=== PATIENT | female | born 1960 | race Caucasian/White ===

== ENCOUNTER 2017-10-27 08:14 | Emergency (ER) | payer MEDICAID ==
[~2017-10-27] VITALS: Ht 172.7 cm; Wt 114.0 kg
[2017-10-27] MEDS ORDERED: LORAZEPAM 1MG TABLET PO ONE (09:00)
[2017-10-27] MEDS ORDERED: CYANOCOBALAMIN 1000MCG/ML VIAL IM ONE (09:00)
[2017-10-27 09:33] LABS: CHLORIDE 94 mEq/L (98-107); INR 1.1; PROTHROMBIN TIME 11.7 sec (9.4-11.6)
[2017-10-27 09:36] LABS: ETHANOL BLOOD < 10 mg/dL
[2017-10-27 10:26] LABS: HEMATOCRIT. 38.1 % (36.0-48.0); MEAN CORPUSCULAR HEMOGLOBIN 35.2 pg (28.0-32.0); MEAN CORPUSCULAR VOLUME 105.2 fL (81.0-99.0); PLATELET 305 x1000/uL (130-400); RED BLOOD CELL COUNT 3.62 mill/uL (4.2-5.4); RED CELL DISTRIBUTION WIDTH 16.1 % (11.6-14.6)
[2017-10-27 10:33] LABS: HEMOGLOBIN. 12.7 g/dL (12.0-16.0)
[2017-10-27 10:47] LABS: HEPATITIS B SURFACE ANTIGEN NEGATIVE
[2017-10-27 11:14] LABS: HEPATITIS B CORE AB IGM NEGATIVE
[2017-10-27] MEDS ORDERED: BISACODYL 5MG TABLET PO ONE (11:15)
[2017-10-27 11:16] LABS: HEPATITIS A AB IGM NEGATIVE (NEGATIVE)
[2017-10-27 11:23] VITALS: BP 146/63
[2017-10-27 11:35] LABS: NUCLEATED RED BLOOD CELLS 1 /100 WBC; PLATELET ESTIMATE NORMAL
== END 2017-10-27 11:31 | disposition home or self-care (01) ==
LOC: ER 09:41
DX: F32.9 Major depressive disorder, single episode, unspecified (principal); K59.00 Constipation, unspecified; F10.20 Alcohol dependence, uncomplicated; E86.0 Dehydration; R60.9 Edema, unspecified; R16.2 Hepatomegaly with splenomegaly, not elsewhere classified; D53.9 Nutritional anemia, unspecified; R74.0 Nonspecific elevation of levels of transaminase and lactic acid dehydrogenase [LDH]; R77.9 Abnormality of plasma protein, unspecified; E80.7 Disorder of bilirubin metabolism, unspecified; I11.0 Hypertensive heart disease with heart failure; I50.9 Heart failure, unspecified; K70.10 Alcoholic hepatitis without ascites; D72.810 Lymphocytopenia; D72.821 Monocytosis (symptomatic); E87.8 Other disorders of electrolyte and fluid balance, not elsewhere classified; E66.01 Morbid (severe) obesity due to excess calories; F41.9 Anxiety disorder, unspecified
CPT/HCPCS: 36415; 71045; 80053; 83036; 83735; 83880; 84484; 85025; 85610; 87040; 93005; 96372; 99285; G0482; J3420; 86705; 86709; 86803; 87340

== ENCOUNTER 2018-04-26 10:00 | Inpatient (IN) | payer MEDICAID ==
[~2018-04-26] VITALS: Ht 175.3 cm; Wt 109.1 kg
[~2018-04-26 10:00] MED LIST: ASPI-1159 PO; CHLO25CA10 PO; FOLI-43 PO; MAGN400T27 PO; METO25TA6 PO; MULT1TAB66 PO; OMEP20TA2 PO; RIVA20TA PO; SERT50TA12 PO; THIA100T72 PO
[2018-04-26] MEDS ORDERED: ONDANSETRON HCL 4MG/2ML INJ IV STA (10:18)
[2018-04-26] MEDS ORDERED: ACETAMINOPHEN 325MG TABLET PO STA (10:18)
[2018-04-26] MEDS ORDERED: LORAZEPAM 2MG/ML CPJ IV ONE ×2 (10:30→10:45)
[2018-04-26] MEDS ORDERED: SODIUM CHLORIDE 0.9% 1000ML BAG (SEPSIS BOLUS) IV ONE (10:30)
[2018-04-26 11:01] LABS: BG BASE EXCESS -1.2 mmol/L (-2.0-2.0); BG CARBOXYHEMOGLOBIN 1.4 % (0.5-1.5); BG DEOXYHEMOGLOBIN 2.9 % (0.0-5.0); BG FRACTION INSPIRED OXYGEN 21; BG HCO3 ACT 19.9 mmol/L (22.0-26.0); BG METHEMOGLOBIN 0.3 % (0.0-1.5); BG OXYHEMOGLOBIN 95.4 % (94.0-97.0); BG PCO2 24.4 mmHg (35.0-45.0); BG PH 7.529 (7.350-7.450); BG PO2 82.7 mmHg (75.0-100.0); BG SAMPLE SITE RIGHT BRACHIAL; BG TOTAL HEMOGLOBIN 13.5 g/dL (12.0-18.0); BG VENT MODE ROOM AIR
[2018-04-26 11:10] LABS: CHLORIDE 90 mEq/L (98-107)
[2018-04-26 11:14] LABS: ETHANOL BLOOD < 10 mg/dL
[2018-04-26] MEDS ORDERED: METOPROLOL TARTRATE 5MG/5ML VIAL IV ONE ×2 (11:15→12:00)
[2018-04-26 11:45] LABS: HEMATOCRIT. 37.2 % (36.0-48.0); HEMOGLOBIN. 12.4 g/dL (12.0-16.0); MEAN CORPUSCULAR HEMOGLOBIN 33.5 pg (28.0-32.0); MEAN CORPUSCULAR VOLUME 100.4 fL (81.0-99.0); MEAN PLATELET VOLUME 8.3 fl (7.4-10.4); PLATELET 242 x1000/uL (130-400); RED BLOOD CELL COUNT 3.71 mill/uL (4.2-5.4); RED CELL DISTRIBUTION WIDTH 17.9 % (11.6-14.6)
[2018-04-26] MEDS ORDERED: LEVOFLOXACIN 500MG PREMIX 100 ML IV ONE (12:30)
[2018-04-26 12:58] LABS: INR 1.1; PARTIAL THROMBOPLASTIN TIME 29.9 sec (23.4-31.0); PROTHROMBIN TIME 10.8 sec (9.1-11.1)
[2018-04-26] MEDS ORDERED: METOPROLOL TARTRATE 25MG TABLET PO ONE (13:00)
[2018-04-26 13:29] LABS: CLARITY URINE CLOUDY (CLEAR); COLOR URINE YELLOW (YELLOW); KETONES URINE 4+ (NEGATIVE); LEUKOCYTE ESTERASE URINE TRACE (NEGATIVE); NITRITE URINE NEGATIVE (NEGATIVE); OCCULT BLOOD URINE NEGATIVE (NEGATIVE); PH URINE 5.5 (4.5-8.0); PROTEIN URINE TRACE (NEGATIVE); SPECIFIC GRAVITY URINE 1.021 (1.005-1.030)
[2018-04-26 13:35] LABS: PLATELET ESTIMATE NORMAL
[2018-04-26 13:42] LABS: *AMPHETAMINES SCREEN URINE NEGATIVE (NEGATIVE); *BARBITURATES SCREEN URINE NEGATIVE (NEGATIVE); *BENZODIAZEPINES SCREEN URINE PRESUMTIVE POSITIVE (NEGATIVE); *COCAINE SCREEN URINE NEGATIVE (NEGATIVE); METHADONE URINE SCREEN NEGATIVE (NEGATIVE)
[2018-04-26 13:43] LABS: CANNABINOID URINE SCREEN NEGATIVE (NEGATIVE); OPIATES URINE SCREEN NEGATIVE (NEGATIVE); PHENCYCLIDINE URINE SCREEN NEGATIVE (NEGATIVE)
[2018-04-26] MEDS ORDERED: CLONIDINE 0.1MG TABLET PO PRN (13:45)
[2018-04-26] MEDS ORDERED: PANTOPRAZOLE SODIUM 40 MG/VIAL IV SCH ×2 (15:45→19:00)
[2018-04-26 22:00] VITALS: BP 136/67
[2018-04-26] MEDS: RISPERIDONE 0.5MG TABLET PO SCH (22:40)
[2018-04-26] MEDS: METOPROLOL TARTRATE 50MG TABLET PO SCH (22:40)
[2018-04-26] MEDS: CHLORDIAZEPOXIDE 5 MG CAPSULE PO SCH (22:41)
[2018-04-26] MEDS: ENOXAPARIN 100MG/ML SYR SUBCUT SCH (22:42)
[2018-04-26] MEDS: LORAZEPAM 2MG/ML CPJ IV PRN (23:04)
[2018-04-27] VITALS (12 sets, daily range): BP systolic 86–131; BP diastolic 37–84
[2018-04-27] MEDS: CHLORDIAZEPOXIDE 5 MG CAPSULE PO SCH ×3 (06:07→21:32)
[2018-04-27 06:18] LABS: CHLORIDE 98 mEq/L (98-107)
[2018-04-27 06:30] LABS: CREATINE KINASE 156 IU/L (26-192)
[2018-04-27 06:37] LABS: CREATINE KINASE MB FRACTION 1.2 ng/mL (0.5-3.6)
[2018-04-27 07:36] LABS: BASOPHILS % 0.7 % (0.0-2.0); EOSINOPHILS % 2.2 % (0.0-5.0); HEMATOCRIT. 32.9 % (36.0-48.0); LYMPHOCYTES % 22.4 % (20.0-50.0); MEAN CORPUSCULAR HEMOGLOBIN 33.6 pg (28.0-32.0); MEAN CORPUSCULAR VOLUME 100.8 fL (81.0-99.0); MEAN PLATELET VOLUME 8.7 fl (7.4-10.4); MONOCYTES % 11.5 % (2.0-8.0); NEUTROPHILS % 63.2 % (40.0-76.0); PLATELET 163 x1000/uL (130-400); RED BLOOD CELL COUNT 3.26 mill/uL (4.2-5.4); RED CELL DISTRIBUTION WIDTH 17.4 % (11.6-14.6)
[2018-04-27] MEDS ORDERED: INFLUENZA VIRUS VACCINE(AFLURIA) 0.5ML SYR IM ONE (08:00)
[2018-04-27] MEDS: PANTOPRAZOLE SODIUM 40 MG/VIAL IV SCH (08:59)
[2018-04-27] MEDS: MULTIVITAMINS,THER W-MINERALS TABLET PO SCH (08:59)
[2018-04-27] MEDS: THIAMINE HCL 100MG TABLET PO SCH (08:59)
[2018-04-27] MEDS: FOLIC ACID 1MG TABLET PO SCH (08:59)
[2018-04-27] MEDS: AMLODIPINE 2.5MG TABLET PO SCH ×2 (09:00→21:31)
[2018-04-27] MEDS: ENOXAPARIN 100MG/ML SYR SUBCUT SCH ×2 (09:00→21:31)
[2018-04-27] MEDS: METOPROLOL TARTRATE 50MG TABLET PO SCH ×2 (09:23→21:30)
[2018-04-27] MEDS ORDERED: ONDANSETRON HCL 4MG/2ML INJ IV PRN (09:30)
[2018-04-27] MEDS ORDERED: POTASSIUM CHLORIDE 20MEQ TABLET SR PO NR (14:00)
[2018-04-27] MEDS ORDERED: MAGNESIUM 4 G PREMIX 100 ML IV NR (15:00)
[2018-04-27 16:19] LABS: VITAMIN B12 SERUM 405 pg/mL (211-911)
[2018-04-27 16:34] LABS: FOLIC ACID (FOLATE) SERUM > 20.00 ng/mL (>5.38)
[2018-04-27] MEDS: RISPERIDONE 0.5MG TABLET PO SCH (21:31)
[2018-04-27] MEDS: LORAZEPAM 2MG/ML CPJ IV PRN (21:32)
[2018-04-28] VITALS (11 sets, daily range): BP systolic 106–153; BP diastolic 49–95
[2018-04-28] MEDS: CHLORDIAZEPOXIDE 5 MG CAPSULE PO SCH ×3 (06:30→21:47)
[2018-04-28 07:23] LABS: CHLORIDE 102 mEq/L (98-107)
[2018-04-28 08:33] LABS: EOSINOPHILS % 7.4 % (0.0-5.0); HEMATOCRIT. 30.7 % (36.0-48.0); HEMOGLOBIN. 10.3 g/dL (12.0-16.0); LYMPHOCYTES % 29.6 % (20.0-50.0); MEAN CORPUSCULAR HEMOGLOBIN 33.8 pg (28.0-32.0); MEAN CORPUSCULAR VOLUME 100.9 fL (81.0-99.0); MEAN PLATELET VOLUME 9.1 fl (7.4-10.4); MONOCYTES % 12.6 % (2.0-8.0); NEUTROPHILS % 49.4 % (40.0-76.0); PLATELET 119 x1000/uL (130-400); RED BLOOD CELL COUNT 3.04 mill/uL (4.2-5.4); RED CELL DISTRIBUTION WIDTH 17.3 % (11.6-14.6)
[2018-04-28] MEDS ORDERED: POTASSIUM CHLORIDE 20MEQ/PACKET PO NR (09:15)
[2018-04-28] MEDS: THIAMINE HCL 100MG TABLET PO SCH (09:55)
[2018-04-28] MEDS: AMLODIPINE 2.5MG TABLET PO SCH ×2 (09:56→21:46)
[2018-04-28] MEDS: METOPROLOL TARTRATE 50MG TABLET PO SCH ×2 (09:56→21:46)
[2018-04-28] MEDS: FOLIC ACID 1MG TABLET PO SCH (09:56)
[2018-04-28] MEDS: ENOXAPARIN 100MG/ML SYR SUBCUT SCH ×2 (09:57→21:00)
[2018-04-28] MEDS: MULTIVITAMINS,THER W-MINERALS TABLET PO SCH (10:01)
[2018-04-28] MEDS: PANTOPRAZOLE SODIUM 40 MG/VIAL IV SCH (10:52)
[2018-04-28] MEDS: RISPERIDONE 0.5MG TABLET PO SCH (21:46)
[2018-04-28] MEDS: LORAZEPAM 2MG/ML CPJ IV PRN (22:44)
[2018-04-29] VITALS (8 sets, daily range): BP systolic 102–145; BP diastolic 57–82
[2018-04-29 06:27] LABS: CHLORIDE 103 mEq/L (98-107)
[2018-04-29 06:31] LABS: HEMATOCRIT. 31.1 % (36.0-48.0); HEMOGLOBIN. 10.4 g/dL (12.0-16.0); MEAN CORPUSCULAR VOLUME 101.5 fL (81.0-99.0); MEAN PLATELET VOLUME 9.2 fl (7.4-10.4); PLATELET 119 x1000/uL (130-400); RED BLOOD CELL COUNT 3.06 mill/uL (4.2-5.4); RED CELL DISTRIBUTION WIDTH 17.2 % (11.6-14.6)
[2018-04-29 06:35] LABS: TOTAL IRON BINDING CAPACITY 149 ug/dL (250-450)
[2018-04-29] MEDS: CHLORDIAZEPOXIDE 5 MG CAPSULE PO SCH ×2 (06:49→14:21)
[2018-04-29] MEDS: FOLIC ACID 1MG TABLET PO SCH (09:00)
[2018-04-29] MEDS: MULTIVITAMINS,THER W-MINERALS TABLET PO SCH (09:00)
[2018-04-29] MEDS ORDERED: POTASSIUM CHLORIDE 20MEQ/PACKET PO SCH (09:00)
[2018-04-29] MEDS: THIAMINE HCL 100MG TABLET PO SCH (09:00)
[2018-04-29] MEDS: METOPROLOL TARTRATE 50MG TABLET PO SCH (09:00)
[2018-04-29] MEDS: AMLODIPINE 2.5MG TABLET PO SCH (09:01)
[2018-04-29] MEDS: PANTOPRAZOLE SODIUM 40 MG/VIAL IV SCH (09:01)
[2018-04-29] MEDS: ENOXAPARIN 100MG/ML SYR SUBCUT SCH (09:02)
[2018-04-29] MEDS ORDERED: FOLI-43 PO (10:50)
[2018-04-29] MEDS ORDERED: METO-539 PO (10:50)
[2018-04-29] MEDS ORDERED: AMLO2.5T45 PO (10:50)
[2018-04-29 10:58] LABS: PLATELET ESTIMATE SLIGHTLY DECREASED
[2018-04-29] MEDS: LORAZEPAM 2MG/ML CPJ IV PRN (14:26)
== END 2018-04-29 16:00 | disposition home or self-care (01) | DRG 720 ==
LOC: ER 10:00 → EDBEDREQ 12:26 → ENRESERV 19:02 → 5EST 21:59
PROVIDERS: ADMIT Internal Medicine; ATTEND Internal Medicine
DX: A41.9 Sepsis, unspecified organism (principal); G92 Toxic encephalopathy; E46 Unspecified protein-calorie malnutrition; E83.42 Hypomagnesemia; I48.0 Paroxysmal atrial fibrillation; I48.2 Chronic atrial fibrillation; K76.0 Fatty (change of) liver, not elsewhere classified; D53.9 Nutritional anemia, unspecified; F32.9 Major depressive disorder, single episode, unspecified; D63.8 Anemia in other chronic diseases classified elsewhere; E87.6 Hypokalemia; I10 Essential (primary) hypertension; F10.239 Alcohol dependence with withdrawal, unspecified; E66.9 Obesity, unspecified; F41.9 Anxiety disorder, unspecified; K21.9 Gastro-esophageal reflux disease without esophagitis; K29.00 Acute gastritis without bleeding; N39.0 Urinary tract infection, site not specified; T51.0X1A Toxic effect of ethanol, accidental (unintentional), initial encounter; Z79.01 Long term (current) use of anticoagulants; Z87.891 Personal history of nicotine dependence; Z79.82 Long term (current) use of aspirin; Z79.899 Other long term (current) drug therapy; Z68.35 Body mass index [BMI] 35.0-35.9, adult; Y92.89 Other specified places as the place of occurrence of the external cause
CPT/HCPCS: 36415; 36600; 71045; 80048; 80061; 80305; 82140; 82375; 82550; 82553; 82607; 82728; 82746; 82805; 83036; 83540; 83550; 83605; 83735; 83880; 84145; 84443; 84484; 85379; 86850; 86900; 90686; 93005; 93970; 96365; 96375; 99291; C9113; G0482; J1650; J1956; J2060; J2405; J3475; J3490; J7030; J7050

== ENCOUNTER 2018-05-17 15:52 | Emergency (ER) | payer MEDICAID ==
[~2018-05-17] VITALS: Ht 167.6 cm; Wt 85.0 kg
[~2018-05-17 15:52] MED LIST changes: +AMLO2.5T45 PO; +METO-539 PO; -METO25TA6 PO; -MULT1TAB66 PO
[2018-05-17] MEDS ORDERED: ONDANSETRON HCL 4MG/2ML INJ IV ONE (17:15)
[2018-05-17] MEDS ORDERED: SODIUM CHLORIDE 0.9% 1,000 ML IV ONE (17:15)
[2018-05-17] MEDS ORDERED: CHLORDIAZEPOXIDE 25MG CAPSULE PO ONE (18:15)
[2018-05-17] MEDS ORDERED: CHLORDIAZEPOXIDE 25MG CAPSULE PO NR (18:30)
[2018-05-17 19:49] VITALS: BP 156/78
== END 2018-05-17 20:18 | disposition home or self-care (01) ==
LOC: ER 15:52
DX: F10.239 Alcohol dependence with withdrawal, unspecified (principal); I48.91 Unspecified atrial fibrillation; I10 Essential (primary) hypertension; F41.9 Anxiety disorder, unspecified; E66.9 Obesity, unspecified; Y90.9 Presence of alcohol in blood, level not specified; Z68.30 Body mass index [BMI] 30.0-30.9, adult; Z79.01 Long term (current) use of anticoagulants
CPT/HCPCS: 93005; 96361; 96374; 99283; J2405; J7030

== ENCOUNTER 2019-04-25 17:29 | Inpatient (IN) | payer MEDICAID ==
[~2019-04-25] VITALS: Ht 180.3 cm; Wt 72.6 kg
[~2019-04-25 17:29] MED LIST changes: -ASPI-1159 PO; +CEPH-569 MT; -CHLO25CA10 PO; +MAGN200T4 PO; -MAGN400T27 PO; -OMEP20TA2 PO; -RIVA20TA PO; -SERT50TA12 PO; -THIA100T72 PO
[2019-04-25] MEDS ORDERED: MORPHINE SULFATE 4 MG/ML CPJ (NOT FOR IM USE) IV ONE (19:30)
[2019-04-25 21:12] LABS: CHLORIDE 100 mEq/L (98-107)
[2019-04-25 21:16] LABS: ETHANOL BLOOD < 10 mg/dL
[2019-04-25 21:26] LABS: HEMOGLOBIN. 12.8 g/dL (12.0-16.0); MEAN CORPUSCULAR HEMOGLOBIN 41.7 pg (28.0-32.0); MEAN CORPUSCULAR VOLUME 117.3 fL (81.0-99.0); MEAN PLATELET VOLUME 8.4 fl (7.4-10.4); PLATELET 472 x1000/uL (130-400); RED BLOOD CELL COUNT 3.07 mill/uL (4.2-5.4); RED CELL DISTRIBUTION WIDTH 15.6 % (11.6-14.6)
[2019-04-25 22:09] LABS: PLATELET ESTIMATE INCREASED
[2019-04-26] MEDS ORDERED: IBUPROFEN 800MG TABLET PO ONE (09:15)
[2019-04-26] MEDS ORDERED: ACETAMINOPHEN 500MG TABLET PO ONE (09:15)
[2019-04-26 15:43] VITALS: BP 133/69
[2019-04-26 16:00] VITALS: BP 125/65
[2019-04-26 20:00] VITALS: BP 124/67
[2019-04-26] MEDS ORDERED: ONDANSETRON HCL 4MG/2ML INJ IV PRN (21:00)
[2019-04-26] MEDS ORDERED: MAGNESIUM/ALUMINUM HYDROXIDE/SIMETHICONE 30ML UDC PO PRN (21:00)
[2019-04-26] MEDS ORDERED: POTASSIUM CHLORIDE 20MEQ TABLET SR PO NR (21:00)
[2019-04-26] MEDS ORDERED: DIPHENHYDRAMINE 50MG/ML VIAL IV PRN (21:00)
[2019-04-26] MEDS: IBUPROFEN 800MG TABLET PO PRN (21:51)
[2019-04-26] MEDS: AMLODIPINE 2.5MG TABLET PO SCH (21:52)
[2019-04-26] MEDS: ZOLPIDEM TARTRATE 5MG TABLET PO PRN (23:23)
[2019-04-27] VITALS: BP 135/82
[2019-04-27 04:00] VITALS: BP 130/78
[2019-04-27 07:21] LABS: CHLORIDE 102 mEq/L (98-107)
[2019-04-27 08:00] VITALS: BP 129/72
[2019-04-27 08:01] LABS: HEMATOCRIT. 30.3 % (36.0-48.0); HEMOGLOBIN. 10.4 g/dL (12.0-16.0); MEAN CORPUSCULAR HEMOGLOBIN 39.1 pg (28.0-32.0); MEAN CORPUSCULAR VOLUME 114.2 fL (81.0-99.0); MEAN PLATELET VOLUME 8.8 fl (7.4-10.4); PLATELET 411 x1000/uL (130-400); RED BLOOD CELL COUNT 2.66 mill/uL (4.2-5.4); RED CELL DISTRIBUTION WIDTH 15.6 % (11.6-14.6)
[2019-04-27 08:13] LABS: FOLIC ACID (FOLATE) SERUM 8.7 ng/mL (>5.38)
[2019-04-27] MEDS: AMLODIPINE 2.5MG TABLET PO SCH ×2 (09:47→19:54)
[2019-04-27 10:39] LABS: PLATELET ESTIMATE SLIGHTLY INCREASED
[2019-04-27 12:00] VITALS: BP 122/77
[2019-04-27 16:00] VITALS: BP 126/79
[2019-04-27] MEDS ORDERED: POTASSIUM CHLORIDE 20MEQ TABLET SR PO NR (16:00)
[2019-04-27] MEDS ORDERED: CYANOCOBALAMIN 1000MCG/ML VIAL IM NR (16:02)
[2019-04-27] MEDS ORDERED: MAGNESIUM 2 G PREMIX 50 ML IV NR (18:00)
[2019-04-27] MEDS: IBUPROFEN 800MG TABLET PO PRN (19:55)
[2019-04-27 20:00] VITALS: BP 123/69
[2019-04-28] VITALS: BP 124/72
[2019-04-28] MEDS: ZOLPIDEM TARTRATE 5MG TABLET PO PRN ×2 (00:07→23:04)
[2019-04-28 04:00] VITALS: BP 119/74
[2019-04-28] MEDS: AMLODIPINE 2.5MG TABLET PO SCH ×2 (08:57→21:56)
[2019-04-28] MEDS: FOLIC ACID 1MG TABLET PO SCH (08:57)
[2019-04-28] MEDS: IBUPROFEN 800MG TABLET PO PRN ×2 (14:18→23:05)
[2019-04-28 16:00] VITALS: BP 133/88
[2019-04-28] MEDS: ACETAMINOPHEN 325MG TABLET PO PRN ×2 (17:45→21:56)
[2019-04-28 20:00] VITALS: BP 147/89
[2019-04-29] VITALS: BP 140/83
[2019-04-29 04:00] VITALS: BP 140/87
[2019-04-29 06:16] LABS: CHLORIDE 103 mEq/L (98-107)
[2019-04-29 06:22] LABS: PHOSPHORUS 3.8 mg/dL (2.5-4.9)
[2019-04-29 07:13] LABS: HEMATOCRIT. 30.8 % (36.0-48.0); HEMOGLOBIN. 10.6 g/dL (12.0-16.0); MEAN CORPUSCULAR HEMOGLOBIN 39.5 pg (28.0-32.0); MEAN CORPUSCULAR VOLUME 114.5 fL (81.0-99.0); MEAN PLATELET VOLUME 8.9 fl (7.4-10.4); PLATELET 385 x1000/uL (130-400); RED BLOOD CELL COUNT 2.69 mill/uL (4.2-5.4); RED CELL DISTRIBUTION WIDTH 15.6 % (11.6-14.6)
[2019-04-29 08:00] VITALS: BP_SYST 150; BP_SYST 99; BP_DIAS 72; BP_DIAS 83
[2019-04-29] MEDS: FOLIC ACID 1MG TABLET PO SCH (09:20)
[2019-04-29] MEDS: AMLODIPINE 2.5MG TABLET PO SCH ×2 (09:20→21:25)
[2019-04-29 11:37] LABS: PLATELET ESTIMATE NORMAL
[2019-04-29 12:00] VITALS: BP 147/90
[2019-04-29] MEDS: IBUPROFEN 800MG TABLET PO PRN ×2 (14:35→23:17)
[2019-04-29 16:00] VITALS: BP 132/82
[2019-04-29] MEDS: ACETAMINOPHEN 325MG TABLET PO PRN (18:43)
[2019-04-29 20:00] VITALS: BP 142/94
[2019-04-29] MEDS: ZOLPIDEM TARTRATE 5MG TABLET PO PRN (21:25)
[2019-04-30] VITALS: BP 154/67
[2019-04-30 04:00] VITALS: BP 143/73
[2019-04-30 08:00] VITALS: BP 114/45
[2019-04-30] MEDS: AMLODIPINE 2.5MG TABLET PO SCH ×2 (08:38→20:37)
[2019-04-30] MEDS: FOLIC ACID 1MG TABLET PO SCH (08:39)
[2019-04-30 12:00] VITALS: BP 127/81
[2019-04-30] MEDS: IBUPROFEN 800MG TABLET PO PRN ×2 (15:04→23:39)
[2019-04-30 16:00] VITALS: BP 124/73
[2019-04-30 20:00] VITALS: BP 149/104
[2019-04-30] MEDS: ACETAMINOPHEN 325MG TABLET PO PRN (20:36)
[2019-04-30] MEDS: ZOLPIDEM TARTRATE 5MG TABLET PO PRN (23:39)
[2019-05-01] VITALS (7 sets, daily range): BP systolic 116–157; BP diastolic 67–95
[2019-05-01] MEDS: AMLODIPINE 2.5MG TABLET PO SCH ×2 (09:19→22:43)
[2019-05-01] MEDS: FOLIC ACID 1MG TABLET PO SCH (09:19)
[2019-05-01] MEDS: IBUPROFEN 800MG TABLET PO PRN ×2 (14:20→22:43)
[2019-05-01] MEDS ORDERED: MAGNESIUM HYDROXIDE 400MG/5ML 30ML UDC PO PRN (15:45)
[2019-05-01] MEDS: ACETAMINOPHEN 325MG TABLET PO PRN (16:47)
[2019-05-01] MEDS: DOCUSATE SODIUM 100MG CAPSULE PO SCH (17:41)
[2019-05-01] MEDS ORDERED: ZOLPIDEM TARTRATE 5MG TABLET PO PRN (21:15)
[2019-05-02] VITALS: BP 141/88
[2019-05-02 04:00] VITALS: BP 156/90
[2019-05-02] MEDS: DOCUSATE SODIUM 100MG CAPSULE PO SCH ×2 (10:35→17:04)
[2019-05-02] MEDS: FOLIC ACID 1MG TABLET PO SCH (10:35)
[2019-05-02] MEDS: AMLODIPINE 2.5MG TABLET PO SCH (10:36)
[2019-05-02 13:27] VITALS: BP 130/75
[2019-05-02 13:55] VITALS: BP 135/79
[2019-05-02] MEDS: IBUPROFEN 800MG TABLET PO PRN (13:55)
[2019-05-02] MEDS: ACETAMINOPHEN 325MG TABLET PO PRN (17:04)
== END 2019-05-02 17:55 | DRG 351 ==
LOC: ER 17:29 → 6EST 04-26 12:08 → ENRESERV 04-26 14:07
PROVIDERS: ADMIT Internal Medicine; ATTEND Internal Medicine
DX: M17.0 Bilateral primary osteoarthritis of knee (principal); E43 Unspecified severe protein-calorie malnutrition; E83.42 Hypomagnesemia; E87.6 Hypokalemia; I10 Essential (primary) hypertension; Z60.2 Problems related to living alone; W18.39XA Other fall on same level, initial encounter; F10.20 Alcohol dependence, uncomplicated; F17.210 Nicotine dependence, cigarettes, uncomplicated; Z79.899 Other long term (current) drug therapy
CPT/HCPCS: 36415; 73560; 80048; 80053; 80320; 82607; 82746; 83735; 84100; 85025; 93970; 99285; J1200; J2405; J3420; J3475; J7040; G0480

== ENCOUNTER 2019-06-10 16:45 | Inpatient (IN) | payer MEDICAID ==
[~2019-06-10] VITALS: Ht 180.3 cm; Wt 85.3 kg
[2019-06-10] MEDS ORDERED: ONDANSETRON HCL 4MG/2ML INJ IV STA (19:00)
[2019-06-10] MEDS ORDERED: SODIUM CHLORIDE 0.9% 1,000 ML IV ONE (19:00)
[2019-06-10] MEDS ORDERED: MORPHINE SULFATE 4 MG/ML CPJ (NOT FOR IM USE) IV STA (19:00)
[2019-06-10 19:58] LABS: CHLORIDE 95 mEq/L (98-107)
[2019-06-10 20:25] LABS: BASOPHILS % 0.2 % (0.0-2.0); EOSINOPHILS % 0.9 % (0.0-5.0); HEMATOCRIT. 34.3 % (36.0-48.0); HEMOGLOBIN. 12.1 g/dL (12.0-16.0); LYMPHOCYTES % 13.3 % (20.0-50.0); MEAN CORPUSCULAR HEMOGLOBIN 36.6 pg (28.0-32.0); MEAN CORPUSCULAR VOLUME 103.8 fL (81.0-99.0); MEAN PLATELET VOLUME 9.1 fl (7.4-10.4); MONOCYTES % 11.1 % (2.0-8.0); NEUTROPHILS % 74.5 % (40.0-76.0); PLATELET 450 x1000/uL (130-400); RED CELL DISTRIBUTION WIDTH 13.4 % (11.6-14.6)
[2019-06-10] MEDS ORDERED: METRONIDAZOLE 500 MG PREMIX 100 ML IV ONE (21:00)
[2019-06-10] MEDS ORDERED: PIPERACILLIN/TAZ 3.375G PREMIX 50 ML IV ONE (21:00)
[2019-06-10] MEDS ORDERED: KCL 20MEQ/100ML PREMIX 100 ML IV ONE (21:00)
[2019-06-11 00:30] VITALS: BP 153/84
[2019-06-11] MEDS ORDERED: LORAZEPAM 2MG/ML CPJ IV PRN (07:30)
[2019-06-11] MEDS ORDERED: ONDANSETRON HCL 4MG/2ML INJ IV PRN (07:30)
[2019-06-11] MEDS ORDERED: HYDROCODONE/ACETAMINOPHEN 10/325MG TABLET PO PRN (07:30)
[2019-06-11] MEDS ORDERED: IPRATROPIUM/ALBUTEROL 0.5-3(2.5)MG/3ML NEB HHN PRN (07:30)
[2019-06-11] MEDS ORDERED: GUAIFENESIN 200MG/10ML SUGAR FREE UDC PO PRN (07:30)
[2019-06-11] MEDS ORDERED: NA PHOS,M-B/NA PHOS,DI-BA ENEMA 118ML PR PRN (07:30)
[2019-06-11] MEDS ORDERED: DIPHENHYDRAMINE 50MG/ML VIAL IV PRN (07:30)
[2019-06-11] MEDS ORDERED: CLONIDINE 0.1MG TABLET PO PRN (07:30)
[2019-06-11] MEDS ORDERED: MAGNESIUM/ALUMINUM HYDROXIDE/SIMETHICONE 30ML UDC PO PRN (07:30)
[2019-06-11] MEDS ORDERED: MORPHINE SULFATE 2 MG/ML CPJ (NOT FOR IM USE) IV PRN (07:30)
[2019-06-11] MEDS ORDERED: ACETAMINOPHEN 325MG TABLET PO PRN (07:30)
[2019-06-11] MEDS ORDERED: DOCUSATE SODIUM 100MG CAPSULE PO PRN (07:30)
[2019-06-11] MEDS ORDERED: HYDRALAZINE 20MG/ML VIAL IV PRN (07:30)
[2019-06-11] MEDS ORDERED: HYDRALAZINE 10 MG in SODIUM CHLORIDE 0.9% 49.5 ML IV PRN (07:45)
[2019-06-11 08:00] VITALS: BP 138/98
[2019-06-11] MEDS: SODIUM CHLORIDE 0.45% 1,000 ML IV SCH ×2 (08:01→21:20)
[2019-06-11] MEDS: ENOXAPARIN 40MG/0.4ML SYR SUBCUT SCH (08:08)
[2019-06-11] MEDS ORDERED: MAGNESIUM HYDROXIDE 400MG/5ML 30ML UDC PO SCH (10:00)
[2019-06-11] MEDS ORDERED: POTASSIUM CHLORIDE 20MEQ TABLET SR PO SCH (10:00)
[2019-06-11] MEDS: AMLODIPINE 2.5MG TABLET PO SCH ×2 (10:29→21:10)
[2019-06-11] MEDS: METOPROLOL TARTRATE 50MG TABLET PO SCH ×2 (10:29→21:10)
[2019-06-11 12:00] VITALS: BP 113/52
[2019-06-11] MEDS: DOCUSATE SODIUM 250MG CAPSULE PO SCH ×2 (12:45→17:44)
[2019-06-11] MEDS ORDERED: NA PHOS,M-B/NA PHOS,DI-BA ENEMA 118ML PR SCH (12:45)
[2019-06-11] MEDS: SODIUM CHLORIDE 0.9% INJ 3ML FLUSH IVF SCH (14:10)
[2019-06-11 16:00] VITALS: BP 141/73
[2019-06-11 20:00] VITALS: BP 148/98
[2019-06-12] VITALS: BP 122/69
[2019-06-12] MEDS: SODIUM CHLORIDE 0.9% INJ 3ML FLUSH IVF SCH ×2 (00:55→05:39)
[2019-06-12 06:32] LABS: CHLORIDE 105 mEq/L (98-107)
[2019-06-12 08:00] VITALS: BP 97/62
[2019-06-12 08:45] LABS: BASOPHILS % 1.9 % (0.0-2.0); EOSINOPHILS % 5.2 % (0.0-5.0); HEMATOCRIT. 30.1 % (36.0-48.0); HEMOGLOBIN. 10.4 g/dL (12.0-16.0); LYMPHOCYTES % 24.2 % (20.0-50.0); MEAN CORPUSCULAR HEMOGLOBIN 36.4 pg (28.0-32.0); MEAN CORPUSCULAR VOLUME 105.1 fL (81.0-99.0); MEAN PLATELET VOLUME 9.8 fl (7.4-10.4); MONOCYTES % 9.1 % (2.0-8.0); NEUTROPHILS % 59.6 % (40.0-76.0); PLATELET 361 x1000/uL (130-400); RED BLOOD CELL COUNT 2.86 mill/uL (4.2-5.4); RED CELL DISTRIBUTION WIDTH 13.8 % (11.6-14.6)
[2019-06-12] MEDS: DOCUSATE SODIUM 250MG CAPSULE PO SCH ×2 (09:00→17:00)
[2019-06-12] MEDS: ENOXAPARIN 40MG/0.4ML SYR SUBCUT SCH (09:00)
[2019-06-12] MEDS: METOPROLOL TARTRATE 50MG TABLET PO SCH (09:00)
[2019-06-12] MEDS: AMLODIPINE 2.5MG TABLET PO SCH (09:00)
[2019-06-12] MEDS: SODIUM CHLORIDE 0.45% 1,000 ML IV SCH (11:30)
[2019-06-12 12:00] VITALS: BP 109/47
[2019-06-12 16:00] VITALS: BP 106/81
[2019-06-12 18:18] VITALS: BP 106/81
[2019-06-12 19:03] VITALS: BP 106/81
== END 2019-06-12 19:40 | disposition home or self-care (01) ==
LOC: ER 16:45 → 6EST 22:36 → ENRESERV 06-11 00:08
PROVIDERS: ADMIT Internal Medicine; ATTEND Internal Medicine
DX: K80.20 Calculus of gallbladder without cholecystitis without obstruction (principal); R65.10 Systemic inflammatory response syndrome (SIRS) of non-infectious origin without acute organ dysfunction; K76.0 Fatty (change of) liver, not elsewhere classified; E66.9 Obesity, unspecified; K59.00 Constipation, unspecified; E87.6 Hypokalemia; G89.29 Other chronic pain; I10 Essential (primary) hypertension; M17.0 Bilateral primary osteoarthritis of knee; Z60.2 Problems related to living alone; Z79.899 Other long term (current) drug therapy; Q24.9 Congenital malformation of heart, unspecified; Z68.26 Body mass index [BMI] 26.0-26.9, adult
CPT/HCPCS: 36415; 74018; 74176; 76700; 80053; 83605; 84484; 85025; 93005; 99285; J1650; J2060; J2270; J2405; J2543; J3480; J3490; J7030

== ENCOUNTER 2019-06-12 21:19 | Inpatient (IN) | payer MEDICAID ==
[~2019-06-12] VITALS: Ht 177.8 cm; Wt 81.6 kg
[2019-06-13 02:07] LABS: HEMATOCRIT. 30.6 % (36.0-48.0); HEMOGLOBIN. 10.9 g/dL (12.0-16.0); MEAN CORPUSCULAR HEMOGLOBIN 38.6 pg (28.0-32.0); MEAN CORPUSCULAR VOLUME 108.3 fL (81.0-99.0); MEAN PLATELET VOLUME 8.6 fl (7.4-10.4); PLATELET 444 x1000/uL (130-400); RED BLOOD CELL COUNT 2.83 mill/uL (4.2-5.4); RED CELL DISTRIBUTION WIDTH 13.7 % (11.6-14.6)
[2019-06-13 02:14] LABS: CHLORIDE 103 mEq/L (98-107)
[2019-06-13 05:17] LABS: ATYPICAL LYMPHOCYTES 1; PLATELET ESTIMATE SLIGHTLY INCREASED
[2019-06-13] MEDS ORDERED: DIPHENHYDRAMINE 50MG/ML VIAL IV PRN (08:45)
[2019-06-13] MEDS ORDERED: IPRATROPIUM/ALBUTEROL 0.5-3(2.5)MG/3ML NEB HHN PRN (08:45)
[2019-06-13] MEDS ORDERED: ONDANSETRON HCL 4MG/2ML INJ IV PRN (08:45)
[2019-06-13 09:07] LABS: PHOSPHORUS 4.2 mg/dL (2.5-4.9)
[2019-06-13 11:56] VITALS: BP 124/74
[2019-06-13] MEDS: ENOXAPARIN 40MG/0.4ML SYR SUBCUT SCH (12:57)
[2019-06-13 16:00] VITALS: BP 137/68
[2019-06-13] MEDS ORDERED: POTASSIUM CHLORIDE 20MEQ TABLET SR PO NR (18:09)
[2019-06-13] MEDS ORDERED: MAGNESIUM 1 G PREMIX 100 ML IV ONE (18:15)
[2019-06-13 20:00] VITALS: BP 125/52
[2019-06-13] MEDS ORDERED: MAGNESIUM 1 G PREMIX 100 ML IV NR (20:00)
[2019-06-14] VITALS: BP_SYST 127; BP_SYST 149; BP_DIAS 54; BP_DIAS 68
[2019-06-14 04:00] VITALS: BP 116/60
[2019-06-14 08:00] VITALS: BP 131/76
[2019-06-14 10:35] LABS: CHLORIDE 107 mEq/L (98-107)
[2019-06-14 11:35] LABS: HEMATOCRIT. 29.4 % (36.0-48.0); HEMOGLOBIN. 10.1 g/dL (12.0-16.0); MEAN CORPUSCULAR HEMOGLOBIN 35.9 pg (28.0-32.0); MEAN CORPUSCULAR VOLUME 104.5 fL (81.0-99.0); MEAN PLATELET VOLUME 9.5 fl (7.4-10.4); PLATELET 356 x1000/uL (130-400); RED BLOOD CELL COUNT 2.81 mill/uL (4.2-5.4)
[2019-06-14 12:00] VITALS: BP 120/58
[2019-06-14] MEDS: ENOXAPARIN 40MG/0.4ML SYR SUBCUT SCH (12:00)
[2019-06-14 13:32] LABS: PLATELET ESTIMATE NORMAL
[2019-06-14 16:00] VITALS: BP 147/71
[2019-06-14 20:00] VITALS: BP 120/70
[2019-06-14] MEDS: ACETAMINOPHEN 325MG TABLET PO PRN (22:23)
[2019-06-15] VITALS: BP 116/69
[2019-06-15 04:00] VITALS: BP 121/51
[2019-06-15 08:00] VITALS: BP 111/43
[2019-06-15 12:00] VITALS: BP 136/75
[2019-06-15] MEDS: ENOXAPARIN 40MG/0.4ML SYR SUBCUT SCH (13:23)
[2019-06-15] MEDS ORDERED: NA PHOS,M-B/NA PHOS,DI-BA ENEMA 118ML PR NR (14:30)
[2019-06-15 16:00] VITALS: BP 157/80
[2019-06-15 20:00] VITALS: BP 130/85
[2019-06-15] MEDS: IBUPROFEN 400MG TABLET PO PRN (21:18)
[2019-06-15] MEDS: ZOLPIDEM TARTRATE 5MG TABLET PO PRN (22:44)
[2019-06-16] VITALS (7 sets, daily range): BP systolic 127–143; BP diastolic 56–88
[2019-06-16 08:22] LABS: BASOPHILS % 0.5 % (0.0-2.0); HEMATOCRIT. 26.7 % (36.0-48.0); HEMOGLOBIN. 9.3 g/dL (12.0-16.0); MEAN CORPUSCULAR HEMOGLOBIN 36.2 pg (28.0-32.0); MEAN CORPUSCULAR VOLUME 104.6 fL (81.0-99.0); MEAN PLATELET VOLUME 9.3 fl (7.4-10.4); MONOCYTES % 12.1 % (2.0-8.0); NEUTROPHILS % 41.4 % (40.0-76.0); PLATELET 362 x1000/uL (130-400); RED BLOOD CELL COUNT 2.56 mill/uL (4.2-5.4); RED CELL DISTRIBUTION WIDTH 13.8 % (11.6-14.6)
[2019-06-16 08:33] LABS: CHLORIDE 106 mEq/L (98-107)
[2019-06-16] MEDS: ENOXAPARIN 40MG/0.4ML SYR SUBCUT SCH (11:10)
[2019-06-16] MEDS: IBUPROFEN 400MG TABLET PO PRN (15:36)
[2019-06-16] MEDS: ACETAMINOPHEN 325MG TABLET PO PRN (20:11)
[2019-06-16] MEDS: ZOLPIDEM TARTRATE 5MG TABLET PO PRN (22:13)
[2019-06-17] VITALS: BP 136/76
[2019-06-17 00:04] VITALS: BP 136/76
[2019-06-17] MEDS: IBUPROFEN 400MG TABLET PO PRN (00:04)
== END 2019-06-17 00:38 | disposition home health service (06) | DRG 351 ==
LOC: ER 21:19 → 6EST 06-13 04:49 → EDBEDREQTM 06-13 04:55 → EDBEDREQ 06-13 04:55 → ENRESERV 06-13 10:26
PROVIDERS: ADMIT Internal Medicine; ATTEND Internal Medicine
DX: M25.571 Pain in right ankle and joints of right foot (principal); E43 Unspecified severe protein-calorie malnutrition; D64.9 Anemia, unspecified; M25.561 Pain in right knee; G89.29 Other chronic pain; I10 Essential (primary) hypertension; K59.00 Constipation, unspecified; M19.90 Unspecified osteoarthritis, unspecified site; R53.1 Weakness; E05.90 Thyrotoxicosis, unspecified without thyrotoxic crisis or storm; M25.562 Pain in left knee; M25.572 Pain in left ankle and joints of left foot; R62.7 Adult failure to thrive; F10.20 Alcohol dependence, uncomplicated; Z68.25 Body mass index [BMI] 25.0-25.9, adult; Z79.899 Other long term (current) drug therapy; E83.51 Hypocalcemia
CPT/HCPCS: 36415; 80048; 80053; 83735; 83880; 84100; 84484; 85025; 93005; 93970; 96365; 96372; 97110; 97116; 97162; 97165; 99285; C1893; J1200; J1650; J3475; J7040

== ENCOUNTER 2019-06-18 00:51 | Emergency (ER) | payer MEDICAID ==
[~2019-06-18] VITALS: Ht 167.6 cm; Wt 82.0 kg
[2019-06-18] MEDS ORDERED: ACETAMINOPHEN 325MG TABLET PO ONE (07:45)
[2019-06-18 08:12] VITALS: BP 153/95
== END 2019-06-18 09:46 | disposition home or self-care (01) ==
LOC: ER 00:51
DX: G89.29 Other chronic pain (principal); K59.00 Constipation, unspecified; I11.9 Hypertensive heart disease without heart failure; Z87.891 Personal history of nicotine dependence
CPT/HCPCS: 99283

== ENCOUNTER 2019-06-26 03:25 | Emergency (ER) | payer MEDICAID ==
[~2019-06-26] VITALS: Ht 165.1 cm; Wt 81.0 kg
[2019-06-26 06:58] LABS: CHLORIDE 102 mEq/L (98-107)
[2019-06-26 07:14] LABS: HEMATOCRIT. 33.7 % (36.0-48.0); HEMOGLOBIN. 12.2 g/dL (12.0-16.0); MEAN CORPUSCULAR HEMOGLOBIN 39.2 pg (28.0-32.0); MEAN CORPUSCULAR VOLUME 108.7 fL (81.0-99.0); MEAN PLATELET VOLUME 8.7 fl (7.4-10.4); RED CELL DISTRIBUTION WIDTH 13.8 % (11.6-14.6)
[2019-06-26] MEDS ORDERED: ONDANSETRON 4MG ODT PO ONE (07:15)
[2019-06-26] MEDS ORDERED: HYDROCODONE/ACETAMINOPHEN 5/325MG TABLET PO ONE (07:15)
[2019-06-26 08:40] LABS: PLATELET ESTIMATE NORMAL
[2019-06-26 08:47] LABS: PLATELET 328 x1000/uL (130-400)
[2019-06-26 11:51] VITALS: BP 154/58
== END 2019-06-26 12:09 | disposition home or self-care (01) ==
LOC: ER 03:25 → CANBEDREQ 13:47
DX: S20.211A Contusion of right front wall of thorax, initial encounter (principal); M54.5 Low back pain; G89.29 Other chronic pain; I11.9 Hypertensive heart disease without heart failure; Z79.899 Other long term (current) drug therapy; W18.39XA Other fall on same level, initial encounter; Y93.89 Activity, other specified; Y92.89 Other specified places as the place of occurrence of the external cause; Y99.8 Other external cause status
CPT/HCPCS: 36415; 71045; 71101; 72100; 80053; 83880; 84484; 85025; 93005; 99285; Q0162

== ENCOUNTER 2019-06-26 20:19 | Inpatient (IN) | payer MEDICAID ==
[~2019-06-26] VITALS: Ht 162.6 cm; Wt 84.1 kg
[2019-06-26] MEDS ORDERED: ACETAMINOPHEN 325MG TABLET PO ONE (22:45)
[2019-06-26] MEDS ORDERED: LORAZEPAM 0.5MG TABLET PO ONE (23:00)
[2019-06-27] MEDS ORDERED: IBUPROFEN 600MG TABLET PO ONE (01:00)
[2019-06-27 16:15] LABS: CHLORIDE 102 mEq/L (98-107)
[2019-06-27 16:54] LABS: BASOPHILS % 1.8 % (0.0-2.0); EOSINOPHILS % 2.1 % (0.0-5.0); HEMATOCRIT. 32.7 % (36.0-48.0); HEMOGLOBIN. 11.2 g/dL (12.0-16.0); LYMPHOCYTES % 22.5 % (20.0-50.0); MEAN CORPUSCULAR VOLUME 105.1 fL (81.0-99.0); MEAN PLATELET VOLUME 9.2 fl (7.4-10.4); NEUTROPHILS % 61.6 % (40.0-76.0); PLATELET 326 x1000/uL (130-400); RED BLOOD CELL COUNT 3.11 mill/uL (4.2-5.4); RED CELL DISTRIBUTION WIDTH 14.1 % (11.6-14.6)
[2019-06-27] MEDS ORDERED: CLONIDINE 0.1MG TABLET PO PRN (18:45)
[2019-06-27] MEDS ORDERED: ONDANSETRON HCL 4MG/2ML INJ IV PRN (18:45)
[2019-06-27 19:46] LABS: CLARITY URINE CLOUDY (CLEAR); COLOR URINE YELLOW (YELLOW); KETONES URINE NEGATIVE (NEGATIVE); LEUKOCYTE ESTERASE URINE 1+ (NEGATIVE); NITRITE URINE NEGATIVE (NEGATIVE); OCCULT BLOOD URINE NEGATIVE (NEGATIVE); PROTEIN URINE NEGATIVE (NEGATIVE); SPECIFIC GRAVITY URINE 1.016 (1.005-1.030)
[2019-06-27] MEDS: TRAMADOL 50MG TABLET PO PRN (20:56)
[2019-06-27] MEDS: ACETAMINOPHEN 325MG TABLET PO PRN (22:12)
[2019-06-28] MEDS: TRAMADOL 50MG TABLET PO PRN (05:10)
[2019-06-28 06:44] LABS: HEMATOCRIT. 27.3 % (36.0-48.0); HEMOGLOBIN. 9.4 g/dL (12.0-16.0); MEAN CORPUSCULAR HEMOGLOBIN 35.7 pg (28.0-32.0); MEAN CORPUSCULAR VOLUME 103.1 fL (81.0-99.0); MEAN PLATELET VOLUME 7.9 fl (7.4-10.4); PLATELET 407 x1000/uL (130-400); RED BLOOD CELL COUNT 2.65 mill/uL (4.2-5.4); RED CELL DISTRIBUTION WIDTH 13.5 % (11.6-14.6)
[2019-06-28] MEDS: HEPARIN 5000 UNITS/ML VIAL SUBCUT SCH ×2 (06:49→18:44)
[2019-06-28 06:50] LABS: CHLORIDE 103 mEq/L (98-107)
[2019-06-28 08:00] VITALS: BP 143/88
[2019-06-28 10:14] LABS: PLATELET ESTIMATE SLIGHTLY INCREASED
[2019-06-28 10:20] VITALS: BP 135/74
[2019-06-28] MEDS ORDERED: MAGNESIUM HYDROXIDE 400MG/5ML 30ML UDC PO PRN (11:45)
[2019-06-28 12:00] VITALS: BP 152/79
[2019-06-28] MEDS: DOCUSATE SODIUM 250MG CAPSULE PO SCH (12:42)
[2019-06-28] MEDS ORDERED: MAGNESIUM 2 G PREMIX 50 ML IV NR (13:00)
[2019-06-28 16:00] VITALS: BP 144/69
[2019-06-28 20:00] VITALS: BP 137/82
[2019-06-28] MEDS ORDERED: SENNOSIDES/DOCUSATE SOD 8.6/50MG TABLET PO PRN (21:00)
[2019-06-28] MEDS: ACETAMINOPHEN 325MG TABLET PO PRN (22:46)
[2019-06-29] VITALS: BP 132/61
[2019-06-29 04:00] VITALS: BP 139/88
[2019-06-29] MEDS: HEPARIN 5000 UNITS/ML VIAL SUBCUT SCH ×2 (06:01→17:41)
[2019-06-29 08:00] VITALS: BP 159/85
[2019-06-29] MEDS: DOCUSATE SODIUM 250MG CAPSULE PO SCH (09:06)
[2019-06-29] MEDS: AMLODIPINE 5MG TABLET PO SCH (10:44)
[2019-06-29 12:13] LABS: CHLORIDE 101 mEq/L (98-107)
[2019-06-29 12:43] LABS: HEMATOCRIT. 25.1 % (36.0-48.0); HEMOGLOBIN. 8.8 g/dL (12.0-16.0); MEAN CORPUSCULAR HEMOGLOBIN 35.8 pg (28.0-32.0); MEAN CORPUSCULAR VOLUME 101.8 fL (81.0-99.0); MEAN PLATELET VOLUME 8.8 fl (7.4-10.4); PLATELET 443 x1000/uL (130-400); RED BLOOD CELL COUNT 2.47 mill/uL (4.2-5.4); RED CELL DISTRIBUTION WIDTH 13.6 % (11.6-14.6)
[2019-06-29] MEDS ORDERED: MAGNESIUM 2 G PREMIX 50 ML IV NR (15:00)
[2019-06-29 16:00] VITALS: BP 142/86
[2019-06-29 16:34] LABS: PLATELET ESTIMATE INCREASED
[2019-06-29] MEDS: ACETAMINOPHEN 325MG TABLET PO PRN (17:42)
[2019-06-29 20:00] VITALS: BP 158/73
[2019-06-29] MEDS: TRAMADOL 50MG TABLET PO PRN (23:02)
[2019-06-30] VITALS: BP 144/79
[2019-06-30 04:00] VITALS: BP 155/86
[2019-06-30] MEDS: HEPARIN 5000 UNITS/ML VIAL SUBCUT SCH ×3 (06:24→20:35)
[2019-06-30] MEDS: TRAMADOL 50MG TABLET PO PRN ×2 (06:25→23:12)
[2019-06-30 07:00] LABS: CHLORIDE 103 mEq/L (98-107)
[2019-06-30 08:00] VITALS: BP 140/65
[2019-06-30] MEDS: DOCUSATE SODIUM 250MG CAPSULE PO SCH (10:18)
[2019-06-30] MEDS: AMLODIPINE 5MG TABLET PO SCH (10:19)
[2019-06-30 12:00] VITALS: BP 149/85
[2019-06-30] MEDS: CLONIDINE 0.1MG TABLET PO SCH ×2 (14:00→23:12)
[2019-06-30 15:16] LABS: BASOPHILS % 0.9 % (0.0-2.0); EOSINOPHILS % 3.2 % (0.0-5.0); HEMATOCRIT. 32.7 % (36.0-48.0); HEMOGLOBIN. 11.3 g/dL (12.0-16.0); LYMPHOCYTES % 37.7 % (20.0-50.0); MEAN CORPUSCULAR HEMOGLOBIN 36.8 pg (28.0-32.0); MEAN CORPUSCULAR VOLUME 106.3 fL (81.0-99.0); MONOCYTES % 10.4 % (2.0-8.0); NEUTROPHILS % 47.8 % (40.0-76.0); RED BLOOD CELL COUNT 3.08 mill/uL (4.2-5.4)
[2019-06-30 16:00] VITALS: BP 106/63
[2019-06-30 20:00] VITALS: BP 148/83
[2019-07-01] VITALS: BP 143/69
[2019-07-01 04:00] VITALS: BP 128/73
[2019-07-01] MEDS: CLONIDINE 0.1MG TABLET PO SCH (06:58)
[2019-07-01] MEDS: HEPARIN 5000 UNITS/ML VIAL SUBCUT SCH (06:58)
[2019-07-01 08:00] VITALS: BP 131/69
[2019-07-01] MEDS: DOCUSATE SODIUM 250MG CAPSULE PO SCH (09:15)
[2019-07-01] MEDS: AMLODIPINE 5MG TABLET PO SCH (09:15)
[2019-07-01 12:00] VITALS: BP 108/72
[2019-07-01] MEDS ORDERED: MAGNESIUM OXIDE 400MG TABLET PO SCH (12:00)
[2019-07-01] MEDS ORDERED: BISACODYL 10MG SUPP PR PRN (13:00)
[2019-07-01] MEDS ORDERED: MINERAL OIL ENEMA 133ML PR NR (13:00)
[2019-07-01 14:11] VITALS: BP 131/85
[2019-07-01 14:11] LABS: CHLORIDE 100 mEq/L (98-107)
[2019-07-01 14:34] LABS: FOLIC ACID (FOLATE) SERUM 8.5 ng/mL (>5.38)
[2019-07-01 15:17] LABS: HEMATOCRIT 27.6 % (36.0-48.0); HEMOGLOBIN 9.4 g/dL (12.0-16.0); MEAN CORPUSCULAR HEMOGLOBIN 35.1 pg (28.0-32.0); MEAN CORPUSCULAR VOLUME 102.7 fL (81.0-99.0); PLATELET 390 x1000/uL (130-400); RED BLOOD CELL COUNT 2.68 mill/uL (4.2-5.4); RED CELL DISTRIBUTION WIDTH 13.3 % (11.6-14.6)
[2019-07-01 16:00] VITALS: BP 115/71
[2019-07-01] MEDS ORDERED: METOPROLOL TARTRATE 50MG TABLET PO SCH (21:00)
[2019-07-02] MEDS ORDERED: FOLIC ACID 1MG TABLET PO SCH (09:00)
[2019-07-02] MEDS ORDERED: AMLODIPINE 2.5MG TABLET PO SCH (09:00)
== END 2019-07-01 16:50 | DRG 463 ==
LOC: ER 20:19 → 6EST 06-27 18:44 → EDBEDREQ 06-27 18:51 → EDBEDREQTM 06-27 18:51 → ENRESERV 06-28 07:39
PROVIDERS: ADMIT Internal Medicine; ATTEND Internal Medicine
DX: N39.0 Urinary tract infection, site not specified (principal); E43 Unspecified severe protein-calorie malnutrition; N17.9 Acute kidney failure, unspecified; K59.00 Constipation, unspecified; E83.42 Hypomagnesemia; G89.29 Other chronic pain; I10 Essential (primary) hypertension; B96.20 Unspecified Escherichia coli [E. coli] as the cause of diseases classified elsewhere; R29.6 Repeated falls; M19.90 Unspecified osteoarthritis, unspecified site; Z68.31 Body mass index [BMI] 31.0-31.9, adult; Z79.899 Other long term (current) drug therapy
CPT/HCPCS: 36415; 71045; 80048; 80053; 81003; 82746; 83735; 84100; 85025; 85027; 87077; 87186; 97162; 97165; 99285; J1644; J3475